=== PATIENT | male | born 1985 | race Two or more races ===

== ENCOUNTER 2021-03-20 15:10 | Emergency (ER) | payer SELFPAY ==
[~2021-03-20] VITALS: Ht 180.3 cm; Wt 73.0 kg
[2021-03-20 20:44] LABS: BASOPHILS % 1.1 % (0.0-2.0); EOSINOPHILS % 1.9 % (0.0-5.0); HEMATOCRIT. 46.4 % (42.0-52.0); HEMOGLOBIN. 15.5 g/dL (14.0-18.0); LYMPHOCYTES % 26.5 % (20.0-50.0); MEAN CORPUSCULAR HEMOGLOBIN 30.4 pg (28.0-32.0); MEAN CORPUSCULAR VOLUME 91.4 fL (80.0-94.0); MEAN PLATELET VOLUME 7.6 fl (7.4-10.4); MONOCYTES % 12.2 % (2.0-8.0); NEUTROPHILS % 58.3 % (40.0-76.0); PLATELET 248 x1000/uL (130-400); RED BLOOD CELL COUNT 5.08 mill/uL (4.7-6.1); RED CELL DISTRIBUTION WIDTH 13.7 % (11.6-14.6)
[2021-03-20 20:51] LABS: CHLORIDE 111 mEq/L (98-107)
[2021-03-20 20:55] LABS: ETHANOL BLOOD 240 mg/dL
[2021-03-21 01:25] VITALS: BP 124/71
== END 2021-03-21 03:04 | disposition home or self-care (01) ==
LOC: ER 15:10 → EDBD 15:10 → ER 03-21 03:04
DX: F10.129 Alcohol abuse with intoxication, unspecified (principal); Y90.8 Blood alcohol level of 240 mg/100 ml or more
CPT/HCPCS: 36415; 80053; 80320; 85025; 99285; G0480